=== PATIENT | female | born 1985 | race Caucasian/White ===

== ENCOUNTER → 2016-06-11 | Outpatient (CLI) | payer OTHER ==
[~2016-06-11] MED LIST: KLONOPIN1 MG PO; PRILOSEC20 MG PO; PRISTIQ ER100 MG PO; ULTRAM50 MG PO
== END | disposition disaster alternative care site (69) ==
LOC: GOPD 05-24 14:30 → GRAD 13:59 → GOPD 14:30 → GRAD 14:30
DX: M47.812 Spondylosis without myelopathy or radiculopathy, cervical region (principal); R51 Headache
CPT/HCPCS: J1030; J1040

== ENCOUNTER 2016-07-02 08:36 | Emergency (ER) | payer OTHER ==
--- NOTE | ~2016-07-02 | ER ---
PATIENT'S NAME: ESTHER DIAL [facility] AGE: 30 Y [address] ROOM: [place] [id number] LOCATION: [facility] ADMIT DATE: 07/02/2016 ER/Outpatient Report DISCHARGE DATE: 07/02/2016 FAMILY PHYSICIAN: Joaquin Dickinson MD ATTENDING PHYSICIAN: Jimbo Spaulding CHIEF COMPLAINT: Fall and left elbow pain. HISTORY OF PRESENT ILLNESS: The patient states she was getting ready to take her children to school this morning when she tripped over her shoe laces, causing herself to fall on outstretched arms. Since then, she has had pain on her left hand, elbow, and left knee. She denies loss of consciousness, headache, vision changes, neck pain, nausea, or vomiting. She has not taken anything for these symptoms. Her biggest concern is the significant pain in her left elbow. She denies any numbness or tingling. PAST MEDICAL HISTORY: Documented on the record and reviewed by me. SOCIAL HISTORY: Documented on the record and reviewed by me. MEDICATIONS: Documented on the record and reviewed by me. ALLERGIES: DOCUMENTED ON THE RECORD AND REVIEWED BY ME. REVIEW OF SYSTEMS: All systems reviewed and negative except as noted in the HPI. PHYSICAL EXAMINATION: VITAL SIGNS: Blood pressure 132/85, pulse 100, respiratory rate is 16, temperature 98.6, and SpO2 is 97% on room air. Pain is currently 3/10. GENERAL: Age-appropriate female, in no obvious pain or distress, sitting upright on the exam table. NEUROLOGIC: Awake. Alert. GCS 15. No focal deficits. No asymmetry on exam. HEENT: Normocephalic and atraumatic. Eyes are PERRL. Oropharynx is clear. NECK: Supple. Trachea is midline. CHEST: Heart has regular rate and rhythm. No murmurs. Lungs are clear to auscultation bilaterally with no rhonchi, wheezes, or rales. PATIENT'S NAME: ESTHER DIAL [facility] AGE: 30 Y [address] ROOM: [place] [id number] LOCATION: [facility] ADMIT DATE: 07/02/2016 ER/Outpatient Report DISCHARGE DATE: 07/02/2016 FAMILY PHYSICIAN: Joaquin Dickinson MD ATTENDING PHYSICIAN: Jimbo Spaulding ABDOMEN: Soft, nontender, and nondistended. No rebound or guarding. BACK: Nontender to palpation throughout. No CVA or spinal or paraspinal tenderness. EXTREMITIES: There is a small contusion on the left knee. No edema or pain to palpation. Multiple scrapes to the left arm. The patient is holding left arm in a flexed position on her stomach, reluctant to move at the elbow. Full passive range of motion of the shoulder without crepitus. Mild tenderness at the left radial head. Particularly, tenderness with pronation and supination along with some crepitus during palpation. The patient is limited on full flexion and full extension secondary to pain at the elbow. The hand is neurovascularly intact. There is no difficulty with thumbs up, crossing fingers, making okay sign. 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 Flexion and extension of the wrist is normal, but does exacerbate some pain at the elbow. SKIN: Warm, dry, and intact. No other abnormalities. LABORATORY DATA AND X-RAYS: Plain films of the left upper extremity were obtained and there was concern for a left radial head fracture. No other obvious abnormalities. Multiple contusions. IMPRESSION: 1. Left radial head fracture. 2. Mechanical fall. 3. Multiple contusions. EMERGENCY DEPARTMENT COURSE: The patient was seen and evaluated as above. Given ibuprofen for discomfort. Based on physical exam, radiographs were obtained to evaluate radial head fracture. Films are concerning for fracture. Splint was placed. Discussed case with Dr. Lentz, orthopedist, and the patient will follow up later this week for same. She is otherwise doing okay. All questions were answered and the patient was ultimately discharged with instructions to use ice and over-the- counter medications as needed. Return if any neurovascular compromise. MD JEFF ANN/tigre /[id number] d: 07/02/16 1950 t: 07/09/16 0646, OUTPATIENT REPORT
== END 2016-07-02 10:28 | disposition disaster alternative care site (69) ==
LOC: GACC 08:36
DX: S52.122A Displaced fracture of head of left radius, initial encounter for closed fracture (principal); S80.02XA Contusion of left knee, initial encounter; Z23 Encounter for immunization; W01.0XXA Fall on same level from slipping, tripping and stumbling without subsequent striking against object, initial encounter